=== PATIENT | female | born 1980 | race Caucasian/White ===

== ENCOUNTER 2019-03-17 20:20 | Emergency (ER) | payer OTHER ==
[~2019-03-17] VITALS: Ht 162.6 cm; Wt 127.3 kg
[~2019-03-17 20:20] MED LIST: FLONASE ALLERG9.9 ML NAS; NORCO 325 MG-51 TAB PO
[2019-03-17 20:26] VITALS: BP 151/101
[2019-03-17] MEDS ORDERED: ZITHROMAX Z PA250 MG PO (20:30)
[2019-03-17] MEDS ORDERED: PREDNISONE10 MG PO (20:30)
[2019-03-17] MEDS ORDERED: CEPHALEXIN500 M2 PO (20:31)
[2019-03-17 21:06] LABS: EOS # 0.1 (0.04-0.40); EOS % 1.2 % (1.0-5.0); HEMATOCRIT 38.7 % (37.0-47.0); HEMOGLOBIN 12.6 g/dL (12.5-16.0); MEAN CELL VOLUME 87 fl (78-100); MEAN CORPUSCULAR HEMOGLOBIN 28 pg (27-31); MEAN CORPUSCULAR HGB CONC 33 g/dL (33-37); MEAN PLATELET VOLUME 9.4 fl (7.4-10.4); MONO # 0.7 (0.20-0.80); NEU # 7.7 (1.40-6.50); PLATELET COUNT 278 K/mm3 (130-400); RED BLOOD COUNT 4.43 M/mm3 (4.10-5.30); RED CELL DISTRIBUTION WIDTH 13.2 % (11.5-14.5); WHITE BLOOD COUNT 10.6 K/mm3 (4.8-10.8)
[2019-03-17 21:20] LABS: ALBUMIN 3.8 g/dL (3.5-5.0); POTASSIUM 3.8 mmol/L (3.5-5.1)
[2019-03-17 21:22] LABS: CALCIUM 9.4 mg/dL (8.3-10.5)
[2019-03-17 21:23] LABS: TOTAL PROTEIN 7.1 g/dL (6.4-8.3)
[2019-03-17 21:25] LABS: TOTAL BILIRUBIN 0.4 mg/dL (0.2-1.2)
[2019-03-17] MEDS ORDERED: NORCO 325 MG-51 TA1 PO (22:08)
[2019-03-17] MEDS ORDERED: ZITHROMAX 250M250 MG PO (22:08)
[2019-03-17 22:11] LABS: ERYTHROCYTE SEDIMENTATION RATE 38 mm/hr (0-20)
== END 2019-03-17 22:17 | disposition home or self-care (01) ==
LOC: ED 20:20
PROVIDERS: Physician Assistant
DX: I88.9 Nonspecific lymphadenitis, unspecified (principal); Z88.1 Allergy status to other antibiotic agents
CPT/HCPCS: J2930

== ENCOUNTER 2020-04-29 20:23 | Outpatient (RCR) | payer OTHER ==
[2020-04-16 21:00] VITALS: BP 128/87
[~2020-04-29 20:23] MED LIST changes: +CEPHALEXIN500 M2 PO; +NORCO 325 MG-51 TA1 PO; +PREDNISONE10 MG PO; +ZITHROMAX 250M250 MG PO; +ZITHROMAX Z PA250 MG PO
[2020-04-29 20:31] VITALS: BP 136/84
== END 2020-07-15 | disposition home or self-care (01) ==
LOC: AMSURD
DX: Z23 Encounter for immunization (principal); Z20.3 Contact with and (suspected) exposure to rabies

== ENCOUNTER → 2021-03-28 | Outpatient (CLI) | payer OTHER | LOC: LAB 11:59 | DX: U07.1 COVID-19 (principal) ==